=== PATIENT | male | born 1985 | race Two or more races ===

== ENCOUNTER 2022-04-14 07:45 | Emergency (ER) | payer MEDICAID, OTHER ==
[~2022-04-14] VITALS: Ht 180.3 cm; Wt 98.5 kg
[2022-04-14 08:44] VITALS: BP 124/87
[2022-04-14] MEDS ORDERED: IBUP800T27 PO (08:56)
== END 2022-04-14 09:23 | disposition home or self-care (01) ==
LOC: ER 07:45
DX: S63.91XA Sprain of unspecified part of right wrist and hand, initial encounter (principal); F17.210 Nicotine dependence, cigarettes, uncomplicated; F12.10 Cannabis abuse, uncomplicated; W18.09XA Striking against other object with subsequent fall, initial encounter; Y93.89 Activity, other specified; Y92.89 Other specified places as the place of occurrence of the external cause; Y99.8 Other external cause status
CPT/HCPCS: 73130